=== PATIENT | female | born 1995 | race Caucasian/White ===

== ENCOUNTER 2017-04-18 21:27 | Emergency (ER) | payer MEDICAID ==
[2017-04-18 21:49] VITALS: BP 124/83; PULSE 94; RESP 16; TEMP 100.3; O2SAT 99
--- NOTE | 2017-04-18 22:27 | ED PDOC ---
HPI: General Adult Time Seen by Provider: 04/18/17 21:53 Chief Complaint (Nursing): Abnormal Skin Integrity Chief Complaint (Provider): Right facail swelling History Per: Patient History/Exam Limitations: no limitations Onset/Duration Of Symptoms: Days Have you had recent travel within the past 21 days to any of the following countries: [place], [place], [place] or [place]?: No Current Symptoms Are (Timing): Still Present Severity: Moderate Additional Complaint(s): Pt states she had her veneers fixed at dentist yesterday. Pt states when she woke up today she had right sided facial swelling. She returned to the dentist today and he prescribed her motrin 800mg and amoxicillin. Pt states the swelling is better than earlier today. Denies fever/chills. PT has not taken amoxicillin yet. Past Medical History Reviewed: Historical Data, Nursing Documentation, Vital Signs Vital Signs: Last Vital Signs Temp 100.3 F H 04/18/17 21:47 Pulse 94 H 04/18/17 21:47 Resp 16 04/18/17 21:47 BP 124/83 04/18/17 21:47 Pulse Ox 99 04/18/17 21:47 - Medical History PMH: No Chronic Diseases - Surgical History Surgical History: No Surg Hx - Family History Family History: States: No Known Family Hx - Living Arrangements Living Arrangements: With Family - Social History Current smoker - smoking cessation education provided: No Alcohol: None Drugs: Denies - Allergies Allergies/Adverse Reactions: Allergies Allergy/AdvReac Type Severity Reaction Status Date / Time No Known Allergies Allergy Verified 07/11/14 15:12 Review of Systems ROS Statement: Except As Marked, All Systems Reviewed And Found Negative Constitutional: Negative for: Fever, Chills ENT: Positive for: Mouth Swelling Gastrointestinal: Negative for: Nausea, Vomiting Physical Exam - Reviewed Nursing Documentation Reviewed: Yes Vital Signs Reviewed: Yes - Physical Exam Appears: Positive for: Well, Non-toxic, No Acute Distress Head Exam: Positive for: ATRAUMATIC, NORMAL INSPECTION, NORMOCEPHALIC Skin: Positive for: Normal Color, Warm Eye Exam: Positive for: Normal appearance ENT: Positive for: Other (Right facial swelling, no imflammation of the ginviga , no abscess formation). Negative for: Normal ENT Inspection Neck: Positive for: Normal, Painless ROM Cardiovascular/Chest: Positive for: Regular Rate, Rhythm Respiratory: Positive for: Normal Breath Sounds. Negative for: Accessory Muscle Use, Respiratory Distress Back: Positive for: Normal Inspection Extremity: Positive for: Normal ROM Neurologic/Psych: Positive for: Alert, Oriented - ECG O2 Sat by Pulse Oximetry: 99 Disposition - Clinical Impression Clinical Impression: Pain, dental - Patient ED Disposition Is Patient to be Admitted: No - Disposition Disposition: Routine/Home Disposition Time: 22:05 Condition: GOOD Instructions: Toothache (ED) Forms: [facility] ([place]), [facility] ED School/Work Excuse
== END 2017-04-18 22:31 | disposition home or self-care (01) ==
LOC: H.ER 21:27
DX: K08.89 Other specified disorders of teeth and supporting structures (principal)